=== PATIENT | female | born 1960 | race Hispanic/Latino ===

== ENCOUNTER 2017-11-29 20:02 | Emergency (ER) | payer MEDICAID ==
[2017-11-29] MEDS ORDERED: Ondansetron ODT 4 MG TAB ONE (20:22)
== END 2017-11-29 21:26 | disposition home or self-care (01) ==
LOC: SCSER 20:02
DX: R10.13 Epigastric pain (principal); R10.30 Lower abdominal pain, unspecified; E11.9 Type 2 diabetes mellitus without complications; I10 Essential (primary) hypertension; F41.9 Anxiety disorder, unspecified; F17.210 Nicotine dependence, cigarettes, uncomplicated; Z71.6 Tobacco abuse counseling
CPT/HCPCS: 96372; 99406; Q0162

== ENCOUNTER 2018-01-16 21:05 | Emergency (ER) | payer MEDICAID | END 2018-01-16 21:28 | disposition left against medical advice (07) | LOC: SCSER 21:05 | DX: Z76.0 Encounter for issue of repeat prescription (principal); M79.662 Pain in left lower leg; M79.661 Pain in right lower leg; E11.40 Type 2 diabetes mellitus with diabetic neuropathy, unspecified; I10 Essential (primary) hypertension; F41.9 Anxiety disorder, unspecified; F17.210 Nicotine dependence, cigarettes, uncomplicated; Z79.899 Other long term (current) drug therapy; Z79.4 Long term (current) use of insulin | CPT/HCPCS: 99283 ==

== ENCOUNTER 2018-01-23 11:34 | Emergency (ER) | payer MEDICAID, SELFPAY | END 2018-01-23 11:58 | disposition home or self-care (01) | LOC: SCSER 11:34 | DX: L01.00 Impetigo, unspecified (principal); E11.40 Type 2 diabetes mellitus with diabetic neuropathy, unspecified; I10 Essential (primary) hypertension; F17.210 Nicotine dependence, cigarettes, uncomplicated; Z79.4 Long term (current) use of insulin; Z79.899 Other long term (current) drug therapy | CPT/HCPCS: 99283 ==

== ENCOUNTER 2018-01-24 08:22 | Inpatient (IN) | payer MEDICAID, SELFPAY ==
[2018-01-24] MEDS ORDERED: methylPREDNISolone Sod Succ/PF 125 MG/2 ML VIAL ONE (09:03)
[2018-01-24] MEDS ORDERED: Ketorolac Tromethamine 30 MG/ML VIAL ONE (09:03)
[2018-01-24] MEDS ORDERED: Famotidine/PF 20 mg/2ml Vial ONE (09:03)
[2018-01-24] MEDS ORDERED: diphenhydrAMINE 50 MG/ML VIAL ONE (09:03)
[2018-01-24] MEDS ORDERED: Water For Inject, Bacteriostat 30 ML ONE (09:04)
[2018-01-24 09:23] LABS: ALT (SGPT) 20 U/L (8-55); AST (SGOT) 22 U/L (5-34); Albumin 3.2 g/dL (3.5-5.0); Alkaline Phosphatase 102 U/L (40-150); Anion Gap 13 mmol/L (10-20); BUN (Urea Nitrogen) 21 mg/dL (9.8-20.1); Bilirubin, Total 0.7 mg/dL (0.2-1.2); CRP (Inflammatory) Less than 0.50 mg/dL (= or < 0.5); Calc. Creatinine Clearance 0 mL/min (70-130); Calcium 9.5 mg/dL (7.8-10.44); Carbon Dioxide 30 mmol/L (22-29); Chloride 102 mmol/L (98-107); Estimated GFR-MDRD 60; Globulin 3.5 g/dL (2.4-3.5); Glucose 210 mg/dL (70-105); Potassium 4.5 mmol/L (3.5-5.1); Protein, Total 6.7 g/dL (6.0-8.3); Sodium 140 mmol/L (136-145)
[2018-01-24 09:33] LABS: #Basophils 0.1 thou/uL (0.0-0.2); #Eosinphils 0.2 thou/uL (0.0-0.7); #Lymphocytes 1.8 thou/uL (1.20-3.40); #Monocytes 0.5 thou/uL (0.11-0.59); #Neutrophils 4.1 thou/uL (1.40-6.50); %Eosinophils 2.3 % (0.0-10.0); %Lymphocytes 27.1 % (21.0-51.0); %Monocytes 7.1 % (0.0-10.0); %Neutrophils 62.5 % (42.0-75.0); Hemoglobin 14.7 g/dL (12.0-16.0); Mean Corpuscular HGB CONC 34.5 g/dL (32.0-36.0); Mean Corpuscular Hemoglobin 27.9 pg (27.0-31.0); Mean Corpuscular Volume 80.8 fL (78.0-98.0); Mean Platelet Volume 8.8 fL (7.4-10.4); Platelet Count 152 thou/uL (130-400); RBC Distribution Width 11.8 % (11.5-14.5); Red Blood Cell (RBC) Count 5.27 mill/uL (4.20-5.40); White Blood Cell (WBC) Count 6.6 thou/uL (4.8-10.8)
--- NOTE | 2018-01-24 10:27 | CT ---
POSTCONTRAST FACE CT: Date: 01/24/18 HISTORY: Bilateral orbital swelling. Evaluate for cellulitis. COMPARISON: None. TECHNIQUE: Postcontrast face CT is performed in the axial plane. Reformatted images are submitted for interpreta tion. FINDINGS: No pathologic enhancement of the brain parenchyma. Visualized calvarium is intact. Adequate aeration of the sinuses and mastoid air cells. Minimal mucosal disease involving the dependent portion of the left maxillary sinus. Coalescence of the right mastoid air cells due to remote infection. Bilateral ocular lenses are appropriately located. Both globes are intact. Retrobulbar fat is preserv ed. Symmetric attenuation of the optic nerves and ocular rectus muscles. Visualized aerodigestive tract is patent. Symmetric attenuation of the visualized parotid glands. There is extensive edema involving the facial subcutaneous fat and soft tissues, extending into the l eft and right frontal scalp. There is no evidence of a retrobulbar infection. The inflammatory change s appear to be confined to the anterior periorbital soft tissues. IMPRESSION: Extensive edema involving the facial and periorbital soft tissues compatible with an infectious, infl ammatory process. No retrobulbar infection. Intra and extraconal fat is unremarkable. POS: [facility]
[2018-01-24] MEDS ORDERED: metroNIDAZOLE 500 MG/100 ML BAG ONE (12:03)
[2018-01-24] MEDS ORDERED: HYDROcodone/Acetaminophen 5/325 mg Tablet ONE (14:11)
[2018-01-24] MEDS ORDERED: Dextrose 5% in Water 1,000 ML IV PRN (16:06)
[2018-01-24] MEDS ORDERED: Dextrose 50% Abboject 50 ML SYRINGE SLOW IVP PRN (16:06)
[2018-01-24] MEDS ORDERED: Morphine 4 MG/ML VIAL SLOW IVP SCH (16:15)
[2018-01-24 16:16] VITALS: BMI 35.2
[2018-01-24] MEDS ORDERED: Ondansetron ODT 4 MG TAB SL PRN (16:19)
[2018-01-24] MEDS ORDERED: Acetaminophen 325 MG TAB PO PRN (16:19)
[2018-01-24] MEDS ORDERED: Ondansetron HCl/PF 4 MG/2 ML Vial IVP PRN (16:19)
[2018-01-24] MEDS: Sodium Chloride 0.9% 1,000 ML IV SCH (16:29)
[2018-01-24] MEDS: HumaLOG 300 UNITS/3 ML VIAL SC PRN ×2 (17:03→22:10)
[2018-01-24] MEDS ORDERED: hydrALAZINE 20 MG/ML VIAL SLOW IVP PRN (17:29)
[2018-01-24] MEDS ORDERED: Lisinopril 10 MG TAB PO SCH (17:30)
--- NOTE | 2018-01-24 17:42 | RAD ---
PORTABLE CHEST 1 VIEW: Date: 01/24/18 Time: 1627 hours HISTORY: Cough. FINDINGS/IMPRESSION: Heart size is normal. The aorta is tortuous. No lobar consolidation, pneumothoraces, or large effusio ns are seen. There are mild atelectatic changes at the lung bases. POS: [facility]
[2018-01-24] MEDS ORDERED: Ketorolac Tromethamine 30 MG/ML VIAL IVP SCH (18:00)
--- NOTE | 2018-01-24 20:41 | HP ---
CHIEF COMPLAINT: Swollen eyes. HISTORY OF PRESENT ILLNESS: This patient is a 57-year-old female who lives in [place] in [facility], who is here visiting family. The patient has a history of diabetes and diabetic neuropathy. Ga crowley takes [place] for that. She started having some pain while she was here and ran out of her [place]. S he presented to the ER and was told that she could not get any pain medicines from there, so she did without subsequent that was 4 days ago. The patient went home that night and developed fevers and ri gors and assumed that she was simply having some withdrawal from not being able to take [place]. Howev er, the next morning, she woke up with sores on her scalp in the forehead area. Subsequently, she we nt back to the emergency department where she says she was diagnosed with folliculitis and given anti biotics and lotion. She subsequently went home from that visit, she continued to get worse and had f acial swelling and today her eyes essentially swelled close and so she went back to the emergency dep artment. In the emergency department, the patient was diagnosed with periorbital cellulitis and had a CT scan of the orbits showing extensive edema involving the facial and periorbital soft tissues com patible with an infectious or inflammatory process, but no retrobulbar infection, intra or extraconal fat findings. The patient was subsequently treated with vancomycin, Flagyl, and Levaquin and given Solu-Medrol. She was subsequently sent here for admission. The patient reports substantial pain ass ociated with these lesions. REVIEW OF SYSTEMS: Notable for the above-mentioned fevers and chills. The patient also reports that she has had a cough for 1 week. She reports that she has had some productive yellow phlegm. She al so reports that she has had some mild diarrhea and is bothered by her neuropathic pain, but otherwise , a 10-system review was negative. PAST MEDICAL HISTORY: Notable for diabetes, hypertension, neuropathy, hyperlipidemia, history of pitts creatitis. She is not sure what the etiology of that is. The patient also reports that she has had history of some intermittent reactive airway disease following an exposure to chlorine and ammonia mi x while she was cleaning a shower that caused a profound reaction to her and she states she almost di ed as a result. FAMILY HISTORY: Her father at 94. Her mother is still living at 90 and in good health. SOCIAL HISTORY: The patient smokes 1 pack of cigarettes per week. She does have a history of alcoho l use, but has quit. She is . She has a PCP, Dr. Pathak in [place], [place]. Her s urrogate decision maker would be her son Joel Torres who lives here and she is FULL CODE. ALLERGIES: KEFLEX, which causes shortness of breath. CURRENT MEDICATIONS: To the best of her knowledge, she takes gabapentin 800 mg t.i.d., [place] p.r.n., lisinopril 20 mg and metformin 1000 mg p.o. b.i.d. PHYSICAL EXAMINATION: GENERAL APPEARANCE: Age appropriate female. She is in no distress. She is awake and alert. VITAL SIGNS: Her blood pressure was reported to be systolic over 200 with a diastolic over 100. HEENT: The patient has a confluence of multiple vesicular lesions which are now purulent and coalesc ed on the frontal forehead area. It is actually in the midline. The majority seemed to be slightly more on the right side at midline; however, there are continuous lesions on the left forehead and one on the left eyelid which are scabbing. Both eyes were completely swollen shut and cannot even forci surekha be opened. She has no OP lesions. She has extensive dental work and a dry oral mucosa. NECK: Reveals lymphadenopathy in the subauricular area on the left that is very tender. There is no JVD. HEART: Regular rate and rhythm without murmurs, gallops or rubs. LUNGS: Clear to auscultation bilaterally with good chest wall expansion and air exchange. ABDOMEN: Soft, nontender, nondistended, positive bowel sounds, no masses, no organomegaly. SKIN: Warm and dry. LABORATORY DATA: White blood cell count 6.6, hemoglobin 10.4, platelets 152. Sed rate is 94. Sodiu m 140, potassium 4.5, chloride 102, CO2 is 30, BUN is 21, creatinine 0.96, glucose 210. Lactic acid 1.3. Liver functions normal. Albumin 3.2. ASSESSMENT AND PLAN: 1. Herpes zoster of the scalp resulting in some lesions on the left forehead and at least one on the left eyelid area. Her eyelids are completely swollen closed and cannot be examined by this examiner . We will start the patient on IV acyclovir at least initially to get her loaded. We are very close to the time at which this will be ineffective but given the location and the severity of the edema, we will go ahead and attempt it. We will consult Ophthalmology in order to get a better look at her eyes to ensure that this is not involving the eyes themselves, although I think probably will not lik ravinder. 2. Diabetes mellitus. We will continue the patient on her home medications once they are clarified. In the meantime, continue Accu-Cheks and sliding scale insulin. 3. Diabetic neuropathy. Continue with p.r.n. [place]. 4. Hypertension. We will resume the patient's normal lisinopril once the dosing can fully be elucid ated. The patient will be in observation status. She does not have evidence of eye involvement and her swe lling can improve, she can certainly treat this as an outpatient with oral medications.
[2018-01-24] MEDS: HYDROcodone/Acetaminophen 5/325 mg Tablet PO PRN (22:16)
[2018-01-25] MEDS: Sodium Chloride 0.9% 1,000 ML IV SCH ×2 (01:43→13:07)
[2018-01-25] MEDS: HYDROcodone/Acetaminophen 5/325 mg Tablet PO PRN ×4 (04:03→21:43)
[2018-01-25] MEDS: HumaLOG 300 UNITS/3 ML VIAL SC PRN ×3 (06:03→20:09)
[2018-01-25] MEDS: Acetaminophen/Codeine 30-300mg Tablet PO PRN ×2 (13:50→20:05)
[2018-01-25 17:00] LABS: ALT (SGPT) 18 U/L (8-55); AST (SGOT) 28 U/L (5-34); Albumin 2.7 g/dL (3.5-5.0); Alkaline Phosphatase 76 U/L (40-150); Anion Gap 12 mmol/L (10-20); BUN (Urea Nitrogen) 26 mg/dL (9.8-20.1); Bilirubin, Total 0.3 mg/dL (0.2-1.2); Calc. Creatinine Clearance 78 mL/min (70-130); Calcium 8.4 mg/dL (7.8-10.44); Carbon Dioxide 23 mmol/L (22-29); Chloride 107 mmol/L (98-107); Estimated GFR-MDRD 50; Globulin 2.8 g/dL (2.4-3.5); Glucose 226 mg/dL (70-105); Potassium 4.1 mmol/L (3.5-5.1); Protein, Total 5.5 g/dL (6.0-8.3); Sodium 138 mmol/L (136-145)
--- NOTE | 2018-01-25 19:33 | PDOC.PN ---
- Subjective Encounter Start Date: 01/25/18 Encounter Start Time: 13:00 Patient seen in bed in the AM. In no acute distress. Complains of facial pain and headache. Patient requesting pain medication for her stella-orbital pain. Denies fevers, Nausea, vomiting, chills. - Objective Vital Signs & Weight: Vital Signs (12 hours) Temp Pulse Resp BP Pulse Ox 01/25/18 16:00 97.7 F 68 18 166/79 H 94 L I&O: 01/24/18 01/25/18 01/26/18 06:59 06:59 06:59 Intake Total 1375 Balance 1375 Result Diagrams: 01/24/18 08:58 01/26/18 03:17 Additional Labs: Accuchecks 01/25/18 16:36 POC Glucose 234 H Phys Exam - Physical Examination HEENT: PERRLA swollen, tenderness around patient's eyes bilaterrally No erythema Zoster rash noted on the forehead Neck: no JVD Respiratory: no wheezing, no rales, no rhonchi Cardiovascular: RRR, no significant murmur, no rub Gastrointestinal: soft, non-tender, no distention, positive bowel sounds Musculoskeletal: no edema, pulses present Neurological: non-focal, normal sensation, moves all 4 limbs Psychiatric: normal affect, A&O x 3 Deviation from normal: zoster rash on patients forehead Dx/Plan (1) Herpes zoster complicated Code(s): B02.8 - ZOSTER WITH OTHER COMPLICATIONS Status: Acute Comment: Continue with Acyclovir started vancomycin continue with pain meds will follow with ophtho's recs (2) Diabetes mellitus Code(s): E11.9 - TYPE 2 DIABETES MELLITUS WITHOUT COMPLICATIONS Status: Chronic Qualifiers: Diabetes mellitus type: type 2 Diabetes mellitus complication status: with hyperglycemia (3) Hypertension Code(s): I10 - ESSENTIAL (PRIMARY) HYPERTENSION Status: Acute Qualifiers: Hypertension type: essential hypertension Qualified Code(s): I10 - Essential (primary) hypertension - Plan cont current plan of care, DVT proph w/SCDs * . Review of Systems - Medications/Allergies Allergies/Adverse Reactions: Allergies Allergy/AdvReac Type Severity Reaction Status Date / Time cephalexin [From Keflex] Allergy Anaphylaxis Verified 01/24/18 16:13 Medications: Current Medications Acetaminophen/Codeine Phosphate (Tylenol #3) 1 tab PO Q6H PRN PRN Reason: Pain Last Admin: 01/25/18 13:50 Dose: 1 tab Hydrocodone Bitart/Acetaminophen ([place] 5/325) 2 tab PO Q4H PRN PRN Reason: Severe Pain (7-10) Last Admin: 01/25/18 16:04 Dose: 2 tab Hydrocodone Bitart/Acetaminophen ([place] 5/325) 1 tab PO Q4H PRN PRN Reason: Moderate Pain (4-6) Dextrose/Water (Dextrose 50%) 25 gm SLOW IVP PRN PRN PRN Reason: Hypoglycemia Glucagon (Glucagon) 1 mg IM PRN PRN PRN Reason: Hypoglycemia Hydralazine HCl (Apresoline) 10 mg SLOW IVP Q4H PRN PRN Reason: Hypertension Last Admin: 01/24/18 18:01 Dose: 10 mg Dextrose/Water (D5w) 1,000 mls @ 0 mls/hr IV .Q0M PRN; As Directed PRN Reason: Hypoglycemia Acyclovir Sodium 500 mg/ (Sodium Chloride) 110 mls @ 100 mls/hr IVPB 0200,1000, 1800 [facility] Last Admin: 01/25/18 18:14 Dose: 110 mls Vancomycin HCl 1 gm/ Device 200 mls @ 200 mls/hr IVPB Q12HR [facility] Stop: 01/27/18 21:01 Insulin Human Lispro (Humalog) 0 units SC .MODERATE SLIDING SC PRN PRN Reason: Moderate Correctional Scale Sodium Chloride (Flush - Normal Saline) 10 ml IVF Q12HR [facility] Sodium Chloride (Flush - Normal Saline) 10 ml IVF PRN PRN PRN Reason: Saline Flush
[2018-01-25] MEDS: Vancomycin HCl 1 GM in Premix Bag 1 BAG IVPB SCH (20:06)
[2018-01-26] MEDS ORDERED: Ondansetron ODT 4 MG TAB PO PRN (00:58)
[2018-01-26] MEDS ORDERED: Gabapentin 100 MG CAP PO SCH (01:00)
[2018-01-26] MEDS ORDERED: Milk Of Magnesia 30 ML UDCUP PO SCH (01:45)
[2018-01-26] MEDS: Acetaminophen/Codeine 30-300mg Tablet PO PRN ×3 (03:27→16:38)
[2018-01-26 05:05] LABS: ALT (SGPT) 18 U/L (8-55); AST (SGOT) 29 U/L (5-34); Albumin 2.4 g/dL (3.5-5.0); Alkaline Phosphatase 69 U/L (40-150); Anion Gap 12 mmol/L (10-20); BUN (Urea Nitrogen) 24 mg/dL (9.8-20.1); Bilirubin, Total 0.3 mg/dL (0.2-1.2); Calc. Creatinine Clearance 84 mL/min (70-130); Calcium 8.3 mg/dL (7.8-10.44); Carbon Dioxide 22 mmol/L (22-29); Chloride 108 mmol/L (98-107); Estimated GFR-MDRD 54; Globulin 2.6 g/dL (2.4-3.5); Glucose 212 mg/dL (70-105); Potassium 3.8 mmol/L (3.5-5.1); Sodium 138 mmol/L (136-145)
[2018-01-26] MEDS: HumaLOG 300 UNITS/3 ML VIAL SC PRN ×4 (05:55→21:17)
--- NOTE | 2018-01-26 07:57 | PDOC.PN ---
- Subjective Encounter Start Date: 01/26/18 Encounter Start Time: 08:00 Subjective: Seen and Examined. Not in acute distress. Feeling better. - Objective Vital Signs & Weight: Vital Signs (12 hours) Temp Pulse Resp BP Pulse Ox 01/26/18 04:00 98.2 F 85 18 170/78 H 92 L 01/26/18 00:00 98.0 F 79 18 189/78 H 92 L 01/25/18 20:00 97.6 F 74 18 92 L I&O: 01/25/18 01/26/18 01/27/18 06:59 06:59 06:59 Intake Total 1914 Balance 1914 Result Diagrams: 01/26/18 03:16 01/26/18 03:17 Additional Labs: Accuchecks 01/26/18 01/25/18 01/25/18 04:28 19:49 16:36 POC Glucose 213 H 341 H 234 H Phys Exam - Physical Examination HEENT: PERRLA, moist MMs edema around orbit are resolving, Mild tenderness on palpation Neck: no JVD Respiratory: no wheezing, no rales, no rhonchi Cardiovascular: no significant murmur Gastrointestinal: non-tender, no distention, positive bowel sounds Musculoskeletal: no edema, pulses present Neurological: non-focal, normal sensation, moves all 4 limbs Psychiatric: normal affect, A&O x 3 Deviation from normal: herpes zoster at forehead. Crusted over Dx/Plan (1) Herpes zoster complicated Code(s): B02.8 - ZOSTER WITH OTHER COMPLICATIONS Status: Acute Comment: Continue with Acyclovir continue with pain meds Eye drops to lubricate the eyes (2) Cellulitis of periorbital region of both eyes Code(s): L03.213 - PERIORBITAL CELLULITIS Status: Acute Comment: Continue Vancomycin follow up vanco trough (3) Diabetes mellitus Code(s): E11.9 - TYPE 2 DIABETES MELLITUS WITHOUT COMPLICATIONS Status: Chronic Qualifiers: Diabetes mellitus type: type 2 Diabetes mellitus complication status: with hyperglycemia (4) Hypertension Code(s): I10 - ESSENTIAL (PRIMARY) HYPERTENSION Status: Acute Qualifiers: Hypertension type: essential hypertension Qualified Code(s): I10 - Essential (primary) hypertension Comment: Started lisinopril, HTCZ, and Hydralazine prn. will monitor BP closely - Plan DVT proph w/SCDs * . Review of Systems - Review of Systems Eyes: Pain Skin: Rash - Medications/Allergies Allergies/Adverse Reactions: Allergies Allergy/AdvReac Type Severity Reaction Status Date / Time cephalexin [From Keflex] Allergy Anaphylaxis Verified 01/24/18 16:13 Medications: Current Medications Acetaminophen/Codeine Phosphate (Tylenol #3) 1 tab PO Q6H PRN PRN Reason: Pain Last Admin: 01/26/18 16:38 Dose: 1 tab Hydrocodone Bitart/Acetaminophen ([place] 5/325) 2 tab PO Q4H PRN PRN Reason: Severe Pain (7-10) Last Admin: 01/25/18 21:43 Dose: 2 tab Hydrocodone Bitart/Acetaminophen ([place] 5/325) 1 tab PO Q4H PRN PRN Reason: Moderate Pain (4-6) Artificial Tears (Tears Naturale) 0 drop EA EYE PRN PRN PRN Reason: Dry Eyes Last Admin: 01/26/18 15:12 Dose: 1 drop Bisacodyl (Dulcolax) 10 mg PO DAILYPRN PRN PRN Reason: Constipation Last Admin: 01/26/18 12:25 Dose: 10 mg Dextrose/Water (Dextrose 50%) 25 gm SLOW IVP PRN PRN PRN Reason: Hypoglycemia Gabapentin (Neurontin) 100 mg PO TID [facility] Last Admin: 01/26/18 14:00 Dose: 100 mg Glipizide (Glucotrol) 5 mg PO AC [facility] Last Admin: 01/26/18 16:39 Dose: 5 mg Glucagon (Glucagon) 1 mg IM PRN PRN PRN Reason: Hypoglycemia Hydralazine HCl (Apresoline) 10 mg IM Q6H PRN PRN Reason: Hypertension Hydrochlorothiazide (Hydrochlorothiazide) 12.5 mg PO DAILY [facility] Dextrose/Water (D5w) 1,000 mls @ 0 mls/hr IV .Q0M PRN; As Directed PRN Reason: Hypoglycemia Acyclovir Sodium 500 mg/ (Sodium Chloride) 110 mls @ 100 mls/hr IVPB 0200,1000, 1800 [facility] Last Admin: 01/26/18 17:35 Dose: 110 mls Vancomycin HCl 1 gm/ Device 200 mls @ 200 mls/hr IVPB Q12HR [facility] Stop: 01/27/18 21:01 Last Admin: 01/26/18 08:28 Dose: 200 mls Insulin Human Lispro (Humalog) 0 units SC .MODERATE SLIDING SC PRN PRN Reason: Moderate Correctional Scale Last Admin: 01/26/18 16:40 Dose: 4 unit Lisinopril (Zestril) 40 mg PO DAILY [facility] Metformin HCl (Glucophage) 1,000 mg PO BID-[facility] Last Admin: 01/26/18 16:39 Dose: 1,000 mg Ondansetron HCl (Zofran Odt) 4 mg PO Q6H PRN PRN Reason: Nausea/Vomiting Last Admin: 01/26/18 05:54 Dose: 4 mg Ondansetron HCl (Zofran) 4 mg IVP Q6H PRN PRN Reason: Nausea/Vomiting Last Admin: 01/26/18 08:34 Dose: 4 mg Sodium Chloride (Flush - Normal Saline) 10 ml IVF Q12HR [facility] Last Admin: 01/26/18 08:27 Dose: 10 ml Sodium Chloride (Flush - Normal Saline) 10 ml IVF PRN PRN PRN Reason: Saline Flush
[2018-01-26 08:01] LABS: Hemoglobin 11.9 g/dL (12.0-16.0); Mean Corpuscular Hemoglobin 29.4 pg (27.0-31.0); Mean Corpuscular Volume 86.5 fL (78.0-98.0); Mean Platelet Volume 8.5 fL (7.4-10.4); Platelet Count 127 thou/uL (130-400); Red Blood Cell (RBC) Count 4.06 mill/uL (4.20-5.40); White Blood Cell (WBC) Count 5.8 thou/uL (4.8-10.8)
[2018-01-26 08:26] LABS: Hemoglobin A1c 8.5 % (4.0-6.0)
[2018-01-26] MEDS: Gabapentin 100 MG CAP PO SCH ×3 (08:27→21:09)
[2018-01-26] MEDS: Vancomycin HCl 1 GM in Premix Bag 1 BAG IVPB SCH ×2 (08:28→21:08)
[2018-01-26] MEDS: Ondansetron HCl/PF 4 MG/2 ML Vial IVP PRN (08:34)
[2018-01-26] MEDS ORDERED: Lisinopril 10 MG TAB PO SCH (09:00)
[2018-01-26] MEDS ORDERED: Hydrochlorothiazide 25 MG TAB PO SCH (11:30)
[2018-01-26] MEDS: Bisacodyl 5 MG TAB PO PRN (12:25)
[2018-01-26] MEDS ORDERED: Non-Formulary Item 1 EACH (Gabapentin [Gabapentin] 800 MG) PO SCH (15:00)
[2018-01-26] MEDS: Artificial Tears 18 DROP/0.9 ML EA EYE PRN (15:12)
[2018-01-26] MEDS: glipiZIDE 5 MG TAB PO SCH (16:39)
[2018-01-26] MEDS: metFORMIN 500 MG TAB PO SCH (16:39)
[2018-01-26] MEDS: hydrALAZINE 20 MG/ML VIAL IM PRN (21:12)
[2018-01-26] MEDS: HYDROcodone/Acetaminophen 5/325 mg Tablet PO PRN (21:15)
[2018-01-27] MEDS: Acetaminophen/Codeine 30-300mg Tablet PO PRN ×4 (02:38→23:15)
[2018-01-27] MEDS: hydrALAZINE 20 MG/ML VIAL IM PRN (05:05)
[2018-01-27] MEDS: HumaLOG 300 UNITS/3 ML VIAL SC PRN (05:09)
[2018-01-27] MEDS: HYDROcodone/Acetaminophen 5/325 mg Tablet PO PRN (07:45)
[2018-01-27] MEDS: Lisinopril 20 MG TAB PO SCH (07:47)
[2018-01-27] MEDS: metFORMIN 500 MG TAB PO SCH ×2 (07:47→16:41)
[2018-01-27] MEDS: Hydrochlorothiazide 25 MG TAB PO SCH (07:48)
[2018-01-27] MEDS: Gabapentin 100 MG CAP PO SCH ×3 (07:49→20:07)
[2018-01-27] MEDS: glipiZIDE 5 MG TAB PO SCH ×3 (07:49→16:41)
[2018-01-27] MEDS: Ondansetron HCl/PF 4 MG/2 ML Vial IVP PRN ×2 (08:05→15:06)
[2018-01-27 09:02] LABS: Hemoglobin 12.7 g/dL (12.0-16.0); Mean Corpuscular HGB CONC 35.1 g/dL (32.0-36.0); Mean Corpuscular Hemoglobin 29.7 pg (27.0-31.0); Mean Corpuscular Volume 84.8 fL (78.0-98.0); Platelet Count 133 thou/uL (130-400); RBC Distribution Width 12.9 % (11.5-14.5); Red Blood Cell (RBC) Count 4.27 mill/uL (4.20-5.40); White Blood Cell (WBC) Count 6.2 thou/uL (4.8-10.8)
[2018-01-27 09:22] LABS: Anion Gap 11 mmol/L (10-20); BUN (Urea Nitrogen) 18 mg/dL (9.8-20.1); Calc. Creatinine Clearance 95 mL/min (70-130); Calcium 8.4 mg/dL (7.8-10.44); Carbon Dioxide 24 mmol/L (22-29); Chloride 105 mmol/L (98-107); Estimated GFR-MDRD 62; Glucose 177 mg/dL (70-105); Potassium 3.7 mmol/L (3.5-5.1); Sodium 136 mmol/L (136-145)
[2018-01-27] MEDS: Sodium Chloride 0.9% 1,000 ML IV SCH ×2 (09:40→19:28)
[2018-01-27] MEDS: Vancomycin HCl 1 GM in Premix Bag 1 BAG IVPB SCH ×2 (09:40→21:04)
[2018-01-27] MEDS ORDERED: Milk Of Magnesia 30 ML UDCUP PO PRN (16:20)
[2018-01-27] MEDS ORDERED: Promethazine HCl 25 MG/ML VIAL SLOW IVP PRN (17:22)
[2018-01-27] MEDS ORDERED: Promethazine HCl 12.5 MG in Sodium Chloride 0.9% 50 ML IVPB PRN (17:36)
--- NOTE | 2018-01-27 19:21 | PDOC.PN ---
- Subjective Encounter Start Date: 01/27/18 Encounter Start Time: 11:00 Subjective: Seen and examined. Experiencing Nausea and vomiting. -: Otherwise denies fever, Nausea, Vomting, CP, Abdominal pain. - Objective MAR Reviewed: Yes Vital Signs & Weight: Vital Signs (12 hours) Temp Pulse Resp BP BP Pulse Ox 01/27/18 16:00 98.4 F 84 18 134/73 93 L 01/27/18 11:00 98.1 F 82 18 142/79 H 92 L 01/27/18 08:00 97.9 F 97 16 94 L 01/27/18 07:47 170/101 H I&O: 01/26/18 01/27/18 01/28/18 06:59 06:59 06:59 Intake Total 1914 1800 220 Balance 1914 1800 220 Result Diagrams: 01/27/18 08:50 01/27/18 08:50 Additional Labs: Accuchecks 01/27/18 01/27/18 01/27/18 16:30 11:15 04:51 POC Glucose 153 H 187 H 223 H 01/26/18 20:04 POC Glucose 181 H Dx/Plan (1) Nausea & vomiting Code(s): R11.2 - NAUSEA WITH VOMITING, UNSPECIFIED Status: Acute Comment: LIkely due to pain medication or Metformin side effect. Will monitor Started anti-emetic meds. Will monitor closely. If doesn't improve then will reduce dose of metformin. (2) Herpes zoster complicated Code(s): B02.8 - ZOSTER WITH OTHER COMPLICATIONS Status: Acute Comment: Continue with Acyclovir. Will switch to Po Acyclovir tomorrow and discharge patient continue with pain meds. Continue with Eye drops to lubricate the eyes. IVF to prevent renal injury that can be caused by Acyclovir (3) Cellulitis of periorbital region of both eyes Code(s): L03.213 - PERIORBITAL CELLULITIS Status: Resolved Comment: Will complete dose of Vancomycin Will switch patient to PO antibiotics (4) Diabetes mellitus Code(s): E11.9 - TYPE 2 DIABETES MELLITUS WITHOUT COMPLICATIONS Status: Chronic Qualifiers: Diabetes mellitus type: type 2 Diabetes mellitus complication status: with hyperglycemia (5) Hypertension Code(s): I10 - ESSENTIAL (PRIMARY) HYPERTENSION Status: Acute Qualifiers: Hypertension type: essential hypertension Qualified Code(s): I10 - Essential (primary) hypertension Comment: Now controlled. Will Continue lisinopril, HTCZ, and Hydralazine prn. (6) Constipation Code(s): K59.00 - CONSTIPATION, UNSPECIFIED Status: Acute Comment: Gave milk of mag and Dulcolax. will continue - Plan DVT proph w/SCDs * . Review of Systems - Review of Systems Gastrointestinal: Nausea, Vomiting - Medications/Allergies Allergies/Adverse Reactions: Allergies Allergy/AdvReac Type Severity Reaction Status Date / Time cephalexin [From Keflex] Allergy Anaphylaxis Verified 01/24/18 16:13 Medications: Current Medications Acetaminophen/Codeine Phosphate (Tylenol #3) 1 tab PO Q6H PRN PRN Reason: Pain Last Admin: 01/27/18 17:58 Dose: 1 tab Hydrocodone Bitart/Acetaminophen ([place] 5/325) 2 tab PO Q4H PRN PRN Reason: Severe Pain (7-10) Last Admin: 01/27/18 07:45 Dose: 2 tab Hydrocodone Bitart/Acetaminophen ([place] 5/325) 1 tab PO Q4H PRN PRN Reason: Moderate Pain (4-6) Last Admin: 01/26/18 21:15 Dose: 1 tab Artificial Tears (Tears Naturale) 0 drop EA EYE PRN PRN PRN Reason: Dry Eyes Last Admin: 01/26/18 15:12 Dose: 1 drop Bisacodyl (Dulcolax) 10 mg PO DAILYPRN PRN PRN Reason: Constipation Last Admin: 01/26/18 12:25 Dose: 10 mg Dextrose/Water (Dextrose 50%) 25 gm SLOW IVP PRN PRN PRN Reason: Hypoglycemia Gabapentin (Neurontin) 100 mg PO TID [facility] Last Admin: 01/27/18 16:41 Dose: Not Given Glipizide (Glucotrol) 5 mg PO AC [facility] Last Admin: 01/27/18 16:41 Dose: Not Given Glucagon (Glucagon) 1 mg IM PRN PRN PRN Reason: Hypoglycemia Hydralazine HCl (Apresoline) 10 mg IM Q6H PRN PRN Reason: Hypertension Last Admin: 01/27/18 05:05 Dose: 10 mg Hydrochlorothiazide (Hydrochlorothiazide) 12.5 mg PO DAILY [facility] Last Admin: 01/27/18 07:48 Dose: 12.5 mg Dextrose/Water (D5w) 1,000 mls @ 0 mls/hr IV .Q0M PRN; As Directed PRN Reason: Hypoglycemia Vancomycin HCl 1 gm/ Device 200 mls @ 200 mls/hr IVPB Q12HR [facility] Stop: 01/27/18 21:01 Last Admin: 01/27/18 09:40 Dose: 200 mls Sodium Chloride (Normal Saline 0.9%) 1,000 mls @ 100 mls/hr IV .Q10H [facility] Last Admin: 01/27/18 09:40 Dose: 1,000 mls Acyclovir Sodium 500 mg/ (Sodium Chloride) 110 mls @ 100 mls/hr IVPB 0400,1200, 2000 [facility] Promethazine HCl 12.5 mg/ (Sodium Chloride) 50.5 mls @ 202 mls/hr IVPB Q6H PRN PRN Reason: Nausea Last Admin: 01/27/18 17:56 Dose: 50.5 mls Insulin Human Lispro (Humalog) 0 units SC .MODERATE SLIDING SC PRN PRN Reason: Moderate Correctional Scale Last Admin: 01/27/18 05:09 Dose: 4 unit Lisinopril (Zestril) 40 mg PO DAILY [facility] Last Admin: 01/27/18 07:47 Dose: 40 mg Magnesium Hydroxide (Milk Of Magnesium) 30 ml PO DAILYPRN PRN PRN Reason: Constipation Metformin HCl (Glucophage) 1,000 mg PO BID-[facility] Last Admin: 01/27/18 16:41 Dose: Not Given Ondansetron HCl (Zofran Odt) 4 mg PO Q6H PRN PRN Reason: Nausea/Vomiting Last Admin: 01/26/18 05:54 Dose: 4 mg Ondansetron HCl (Zofran) 4 mg IVP Q6H PRN PRN Reason: Nausea/Vomiting Last Admin: 01/27/18 15:06 Dose: 4 mg Promethazine HCl (Phenergan) 12.5 mg SLOW IVP Q6H PRN PRN Reason: Nausea Sodium Chloride (Flush - Normal Saline) 10 ml IVF Q12HR [facility] Last Admin: 01/27/18 07:49 Dose: 10 ml Sodium Chloride (Flush - Normal Saline) 10 ml IVF PRN PRN PRN Reason: Saline Flush
[2018-01-28] MEDS: hydrALAZINE 20 MG/ML VIAL IM PRN (04:27)
[2018-01-28] MEDS: Ondansetron HCl/PF 4 MG/2 ML Vial IVP PRN (04:27)
[2018-01-28] MEDS: Bisacodyl 5 MG TAB PO PRN (04:28)
[2018-01-28] MEDS: Artificial Tears 18 DROP/0.9 ML EA EYE PRN (04:28)
[2018-01-28] MEDS: HumaLOG 300 UNITS/3 ML VIAL SC PRN ×3 (05:00→17:33)
[2018-01-28] MEDS: Sodium Chloride 0.9% 1,000 ML IV SCH ×2 (05:00→14:51)
[2018-01-28] MEDS: Lisinopril 20 MG TAB PO SCH (07:54)
[2018-01-28] MEDS: glipiZIDE 5 MG TAB PO SCH ×3 (07:55→17:32)
[2018-01-28] MEDS: Gabapentin 100 MG CAP PO SCH ×2 (07:55→14:50)
[2018-01-28] MEDS: Hydrochlorothiazide 25 MG TAB PO SCH (07:55)
[2018-01-28] MEDS: metFORMIN 500 MG TAB PO SCH ×2 (07:55→17:32)
[2018-01-28] MEDS: HYDROcodone/Acetaminophen 5/325 mg Tablet PO PRN ×2 (07:56→12:12)
[2018-01-28 11:25] VITALS: TEMP 98.3
[2018-01-28] MEDS ORDERED: Fleet Enema 133 ML BOT PR SCH (15:30)
[2018-01-28 18:08] VITALS: BP 160/86
--- NOTE | 2018-01-29 00:31 | PRG ---
DATE OF SERVICE: 01/28/2018 SUBJECIVE: The patient was seen and examined in bed. The patient states that she has constipation, not had bowel movements in a week, so the patient continued to take milk of magnesia, prescribed Flee t enema for the patient. Otherwise, the patient did not have any other complaints. OBJECTIVE: VITAL SIGNS: Vitals were within normal limits. HEENT: The patient has a rash on her forehead, otherwise the patient is stable. The patient's edema around her orbits are decreasing.
--- NOTE | 2018-01-29 00:32 | DIS ---
DATE OF ADMISSION: 01/25/2018 DATE OF DISCHARGE: 01/28/2018 CHIEF COMPLAINT: "My head hurts and my face is swollen." DISCHARGE DIAGNOSES: 1. Herpes zoster. 2. Periorbital cellultis. 3. Hypertension. 4. Diabetes mellitus type 2. 5. Nausea and vomiting. 6. Constipation. CONSULTATION: Ophthalmology. HOSPITAL COURSE: This is a 57-year-old female from [place], who has history of diabetes and diabe tic neuropathy, coming in with facial edema and rash on her forehead. On physical examination, it wa s turned out that rash on the forehead was Herpes zoster and imaging was done, CT of the face which s howed edema around the orbit and diagnosed with periorbital cellulitis. The patient was started on s teroids, vancomycin, Flagyl, Levaquin. The patient was also given acyclovir. We continued acyclovir and continued vancomycin. The patient's pain medications were adjusted to help her with facial pain . LABS: On admission, the patient's white count was 6.6, hemoglobin was 10.4, platelets , sodium 140, potassium 4.5, chloride 102, CO2 of 30, BUN 21, creatinine 0.96, glucose 210, lactic acid 1.3. Liver function was normal with albumin. DISPOSITION: The patient was seen and examined. The patient was stable. The patient does not have any complaints and the patient was ready for discharge. DISCHARGE MEDICATIONS: Kindly refer to electronic medical record for discharge medications. DISCHARGE ENCOUNTER: Lasted for 32 minutes approximately. The patient was given home medications. The patient was advised to follow up with [facility] and good was given to the patient, so that the patient can afford her medications, since the p atient was stating that she does not have enough money to afford medications. This case was dictated by Dr. Ramy Arreaga on patient, Brian Bull.
== END 2018-01-28 19:32 | disposition home or self-care (01) | DRG 603 ==
LOC: SCSER 08:22 → ONC 15:16 → INTOOBSV 15:16 → T4-A 18:30 → OBSVTOIN 01-25 13:42
PROVIDERS: ADMIT Internal Medicine; ATTEND Internal Medicine
DX: L03.213 Periorbital cellulitis (principal); B02.39 Other herpes zoster eye disease; B02.8 Zoster with other complications; E11.40 Type 2 diabetes mellitus with diabetic neuropathy, unspecified; I10 Essential (primary) hypertension; E78.5 Hyperlipidemia, unspecified; R11.2 Nausea with vomiting, unspecified; J45.20 Mild intermittent asthma, uncomplicated; K59.00 Constipation, unspecified; F17.200 Nicotine dependence, unspecified, uncomplicated; Z88.1 Allergy status to other antibiotic agents
CPT/HCPCS: 36415; 36416; 70481; 71045; 80048; 80053; 80202; 83036; 83605; 85025; 85027; 85652; 86140; 87040; 96361; 96365; 96367; 96375; A4216; J0133; J0360; J1200; J1885; J1956; J2270; J2405; J2550; J2930; J3370; J7050; Q0162; S0028

== ENCOUNTER 2019-02-21 12:43 | Emergency (ER) | payer MEDICAID ==
[2019-02-21] MEDS ORDERED: Morphine 4 MG/ML VIAL ONE (13:10)
[2019-02-21 13:38] LABS: #Basophils 0.1 thou/uL (0.0-0.2); #Eosinphils 0.1 thou/uL (0.0-0.7); #Lymphocytes 1.1 thou/uL (1.20-3.40); #Monocytes 0.3 thou/uL (0.11-0.59); #Neutrophils 5.9 thou/uL (1.40-6.50); %Basophils 0.9 % (0.0-1.0); %Lymphocytes 15.1 % (21.0-51.0); %Monocytes 3.6 % (0.0-10.0); %Neutrophils 79.4 % (42.0-75.0); Hemoglobin 10.4 g/dL (12.0-16.0); Mean Corpuscular HGB CONC 32.9 g/dL (32.0-36.0); Mean Corpuscular Hemoglobin 28.1 pg (27.0-31.0); Mean Corpuscular Volume 85.2 fL (78.0-98.0); Mean Platelet Volume 9.5 fL (7.4-10.4); Platelet Count 170 thou/uL (130-400); RBC Distribution Width 12.8 % (11.5-14.5); Red Blood Cell (RBC) Count 3.72 mill/uL (4.20-5.40); White Blood Cell (WBC) Count 7.5 thou/uL (4.8-10.8)
[2019-02-21 13:47] LABS: ALT (SGPT) 13 U/L (8-55); AST (SGOT) 15 U/L (5-34); Albumin 2.6 g/dL (3.5-5.0); Alkaline Phosphatase 72 U/L (40-150); Anion Gap 13 mmol/L (10-20); BUN (Urea Nitrogen) 35 mg/dL (9.8-20.1); Bilirubin, Total 0.2 mg/dL (0.2-1.2); Calc. Creatinine Clearance 0 mL/min (70-130); Calcium 9.1 mg/dL (7.8-10.44); Carbon Dioxide 27 mmol/L (22-29); Chloride 105 mmol/L (98-107); Estimated GFR-MDRD 21; Globulin 2.9 g/dL (2.4-3.5); Glucose 117 mg/dL (70-105); Lipase 153 U/L (8-78); Potassium 3.5 mmol/L (3.5-5.1); Protein, Total 5.5 g/dL (6.0-8.3); Sodium 141 mmol/L (136-145)
[2019-02-21 13:55] LABS: Bilirubin Negative (Negative); Blood, Urine Moderate (Negative); Clarity Hazy (Clear); Glucose, Urine (Dipstick) 500 mg/dL (Negative); Leukocyte Negative (Negative); Nitrite Negative (Negative); Protein, Urine (Dipstick) > or equal to 300 mg/dL (Neg-Trace); Urobilinogen 0.2 mg/dL (Less than 2)
[2019-02-21 13:56] LABS: Bacteria/HPF 1+ HPF (None Seen); WBC/HPF None Seen HPF (0-3)
--- NOTE | 2019-02-21 14:14 | CT ---
CT STONE PROTOCOL: HISTORY:Abdominal pain, back pain COMPARISON: None DISCLAIMER: Absence of oral and IV contrast reduces the sensitivity of the exam particularly for the evaluation of solid organs and bowel. FINDINGS: There are mild dependent changes in the lung bases.. No free air or free fluid is seen in the abdomen or pelvis. The patient is status post cholecystectomy and hysterectomy. A normal-appearing appendix is present. There is edema in the subcutaneous fat. Small foci of air are seen in the subcut is fat of the right gluteal region likely due to recent injections. There are calcifications in the pancreas indicative of chronic pancreatitis. A mass in the region of the head of the pancreas cannot be excluded on this study. The spleen is enlarged measuring 15.2 cm in length. There is a punctate calculus in the left kidney. No calculi are seen in the right kidney, either uret er or the urinary bladder. No hydroureteronephrosis is seen on either side. There is colonic diverticulosis. There are vascular calcifications without evidence of aneurysmal dilatation of the ab dominal aorta. There are degenerative changes in the spine. IMPRESSION: 1. Punctate nonobstructing left renal calculus. 2. Splenomegaly. 3. No evidence of appendicitis. 4. Colonic diverticulosis. 5. Chronic pancreatitis. Possibility of a pancreatic head mass cannot be excluded. Endoscopic ultraso und would be helpful.
== END 2019-02-21 14:30 | disposition home or self-care (01) ==
LOC: SCSER 12:43
DX: K85.90 Acute pancreatitis without necrosis or infection, unspecified (principal); I10 Essential (primary) hypertension; N28.9 Disorder of kidney and ureter, unspecified; E11.40 Type 2 diabetes mellitus with diabetic neuropathy, unspecified; F41.9 Anxiety disorder, unspecified; Z87.891 Personal history of nicotine dependence; Z79.84 Long term (current) use of oral hypoglycemic drugs; Z79.4 Long term (current) use of insulin
CPT/HCPCS: 36415; 74176; 80053; 81003; 81015; 83690; 85025; 96372; J2270